=== PATIENT | male | born 1950 | race Caucasian/White ===

== ENCOUNTER 2021-11-26 11:33 | Observation (INO) ==
[2021-11-26] MEDS ORDERED: 0.9 % Sodium Chloride 1,000 ML IVC ONE (12:55)
[2021-11-26] MEDS ORDERED: Ondansetron 4 MG/2 ML VIAL IVP ONE (12:55)
[2021-11-26] MEDS ORDERED: *HR* FentaNYL (PF) 100 MCG/2 ML VIAL IVP STA ×2 (12:55→14:59)
[2021-11-26 13:34] LABS: Basophils % 0.2 %; Hematocrit 45.4 % (37.5-50.1); Hemoglobin 14.6 g/dL (12.9-16.9); Immature Granulocytes % 0.5 % (0-4); Lymphocytes # 1.8 K/mcL (0.6-4.6); Mean Corpuscular HGB Conc 32.2 g/dL (31.6-35.5); Mean Corpuscular Hemoglobin 27.1 pg (28.0-33.3); Mean Corpuscular Volume 84.2 fL (83.0-100.0); Mean Platelet Volume 10.4 fL (9.4-12.4); Monocytes # 1.2 K/mcL (0.0-1.3); Monocytes % 6.5 %; Neutrophils # 14.7 K/mcL (1.6-8.9); Platelet Count 293 K/mcL (140-400); Red Blood Count 5.39 M/mcL (4.19-5.50); Red Cell Distribution Width 15.5 % (11.5-14.5); Segmented Neutrophils % 82.8 %; White Blood Count 17.8 K/mcL (4.3-11.1)
[2021-11-26] MEDS ORDERED: Cefepime HCl 1,000 MG in D5% in Water (Mini-Bag+) 100 ML IVPB STA (13:58)
[2021-11-26 14:10] LABS: Alanine Aminotransferase 20 Units/L (7-52); Albumin 4.1 g/dL (3.5-5.7); Albumin/Globulin Ratio 1.5 (1.1-2.2); Alkaline Phosphatase 80 Units/L (34-104); Aspartate Amino Transferase 14 Units/L (13-39); BUN/Creatinine Ratio 17 (6-26); Bilirubin,Direct 0.2 mg/dL (0.0-0.2); Bilirubin,Indirect 0.8 mg/dL (0.0-1.0); Blood Urea Nitrogen 16 mg/dL (8-23); Calcium 9.4 mg/dL (8.6-10.3); Carbon Dioxide 25 mEq/L (23-29); Chloride 102 mEq/L (98-107); Globulin 2.8 g/dL (2.4-3.5); Glucose 136 mg/dL (70-105); Lipase 12 Units/L (11-82); Osmolality,Calculated 285 (280-300); Potassium 3.8 mEq/L (3.5-5.1); Sodium 136 mEq/L (136-145); Total Protein 6.9 g/dL (6.4-8.9); eGFR For African Americans > 60 (> 60); eGFR For Non-African Americans > 60 (> 60)
[2021-11-26 14:12] LABS: Bilirubin,Urine Negative (Negative); Blood,Urine Negative (Negative); Clarity,Urine Clear (Clear); Color,Urine Yellow (Yellow); Glucose,Urine (UA) Normal (Normal); Hyaline Casts,Urine Few per lpf (None Seen); Ketones,Urine Negative (Negative); Leukocyte Esterase,Urine Negative (Negative); Mucus,Urine Few per lpf (None-Few); Nitrite,Urine Negative (Negative); Protein,Urine 50 mg/dL (Neg-Trace); RBC,Urine 0-3 per hpf (0-3); Specific Gravity,Urine 1.029 (1.010-1.025); Urobilinogen,Urine Normal (Normal)
[2021-11-26] MEDS ORDERED: Cefepime HCl 1,000 MG in 0.9 % Sodium Chloride Mini Bag 100 ML IVP ONE (15:10)
[2021-11-26] MEDS ORDERED: *HR* HYDROmorphone 2 MG/ML SYRINGE IVP ONE (16:53)
[2021-11-26] MEDS ORDERED: *HR* HYDROmorphone 2 MG/ML SYRINGE IVP PRN (17:25)
[2021-11-26] MEDS ORDERED: Ondansetron 4 MG/2 ML VIAL IVP PRN ×3 (17:26→22:50)
[2021-11-26] MEDS ORDERED: 0.9 % Sodium Chloride 1,000 ML IVC SCH (17:30)
[2021-11-26] MEDS ORDERED: Lidocaine HCL 4 ML Topical Solution (Laryng-O-Jet Kit Sterile Pak) TP ONE (17:53)
[2021-11-26] MEDS ORDERED: *HR* Succinylcholine 200 MG/10 ML VIAL IVP ONE (17:53)
[2021-11-26] MEDS ORDERED: Lidocaine -MPF 2% 2 ML VIAL ONE (17:53)
[2021-11-26] MEDS ORDERED: *HR* Propofol 200 MG/20 ML VIAL IVP ONE (17:53)
[2021-11-26] MEDS ORDERED: *HR* Rocuronium Bromide 50 MG/5 ML VIAL ONE ×2 (17:53→19:14)
[2021-11-26] MEDS ORDERED: MetroNIDAZOLE 500 MG/100 ML 500 MG/100 ML BAG IVPB SCH (18:00)
[2021-11-26] MEDS ORDERED: Acetaminophen IV 1,000 MG/100 ML BAG IVPB ONE (18:12)
[2021-11-26] MEDS ORDERED: Famotidine 20 MG/2 ML VIAL ONE (18:12)
[2021-11-26] MEDS ORDERED: CefOXitin 1,000 MG VIAL ONE (18:13)
[2021-11-26] MEDS ORDERED: MetroNIDAZOLE 500 MG/100 ML 500 MG/100 ML BAG IVPB ONE (18:13)
[2021-11-26] MEDS ORDERED: *HR* FentaNYL (PF) 100 MCG/2 ML VIAL ONE ×2 (18:15→18:34)
[2021-11-26] MEDS ORDERED: *HR* Midazolam HCl 2 MG/2 ML VIAL ONE (18:22)
[2021-11-26] MEDS ORDERED: Acetaminophen IV 1,000 MG/100 ML BAG IVPB SCH (19:00)
[2021-11-26] MEDS ORDERED: EPHEDrine 50 MG/ML VIAL ONE (19:05)
[2021-11-26] MEDS ORDERED: *HR* HYDROMORPHONE 2 MG/ML VIAL ONE ×2 (19:32→20:57)
[2021-11-27] MEDS ORDERED: ceFAZolin 1,000 MG in 0.9 % Sodium Chloride 10 ML IVP SCH
[2021-11-27] MEDS: Acetaminophen IV 1,000 MG/100 ML BAG IVPB SCH ×5 (02:12→23:18)
[2021-11-27] MEDS: ceFAZolin 1,000 MG in 0.9 % Sodium Chloride 10 ML IVP SCH ×4 (02:19→23:19)
[2021-11-27] MEDS: MetroNIDAZOLE 500 MG/100 ML 500 MG/100 ML BAG IVPB SCH ×5 (02:19→23:19)
[2021-11-27 03:29] LABS: Basophils % 0.1 %; Hematocrit 40.9 % (37.5-50.1); Immature Granulocytes % 0.4 % (0-4); Lymphocytes % 5.8 %; Mean Corpuscular HGB Conc 31.8 g/dL (31.6-35.5); Mean Corpuscular Hemoglobin 27.3 pg (28.0-33.3); Mean Corpuscular Volume 85.7 fL (83.0-100.0); Mean Platelet Volume 10.5 fL (9.4-12.4); Monocytes # 0.9 K/mcL (0.0-1.3); Monocytes % 4.9 %; Neutrophils # 15.8 K/mcL (1.6-8.9); Platelet Count 258 K/mcL (140-400); Red Blood Count 4.77 M/mcL (4.19-5.50); Red Cell Distribution Width 15.5 % (11.5-14.5); Segmented Neutrophils % 88.8 %; White Blood Count 17.8 K/mcL (4.3-11.1)
[2021-11-27] MEDS: *HR* OxyCODONE Immed Rel 5 MG TABLET PO PRN ×3 (06:44→20:03)
[2021-11-27] MEDS: NIFEdipine XL (24 HR) 30 MG TAB.ER.24 PO SCH (07:58)
[2021-11-27] MEDS ORDERED: NIFEdipine XL (24 HR) 30 MG TAB.ER.24 PO SCH (09:00)
[2021-11-28] MEDS: *HR* OxyCODONE Immed Rel 5 MG TABLET PO PRN ×5 (00:56→22:56)
[2021-11-28] MEDS: MetroNIDAZOLE 500 MG/100 ML 500 MG/100 ML BAG IVPB SCH ×4 (04:59→23:58)
[2021-11-28] MEDS: Acetaminophen IV 1,000 MG/100 ML BAG IVPB SCH ×4 (05:00→23:58)
[2021-11-28 06:23] LABS: Basophils # 0.1 K/mcL (0.0-0.2); Basophils % 0.5 %; Eosinophils # 0.4 K/mcL (0.0-0.6); Eosinophils % 3.2 %; Hematocrit 37.5 % (37.5-50.1); Hemoglobin 11.9 g/dL (12.9-16.9); Immature Granulocytes % 0.2 % (0-4); Lymphocytes # 2.2 K/mcL (0.6-4.6); Lymphocytes % 17.7 %; Mean Corpuscular HGB Conc 31.7 g/dL (31.6-35.5); Mean Corpuscular Hemoglobin 27.4 pg (28.0-33.3); Mean Corpuscular Volume 86.4 fL (83.0-100.0); Mean Platelet Volume 10.3 fL (9.4-12.4); Monocytes # 1.1 K/mcL (0.0-1.3); Neutrophils # 8.8 K/mcL (1.6-8.9); Platelet Count 252 K/mcL (140-400); Red Blood Count 4.34 M/mcL (4.19-5.50); Red Cell Distribution Width 15.6 % (11.5-14.5); Segmented Neutrophils % 69.4 %; White Blood Count 12.6 K/mcL (4.3-11.1)
[2021-11-28] MEDS: NIFEdipine XL (24 HR) 30 MG TAB.ER.24 PO SCH (08:42)
[2021-11-28] MEDS: ceFAZolin 1,000 MG in 0.9 % Sodium Chloride 10 ML IVP SCH ×2 (08:42→18:18)
[2021-11-29] MEDS: ceFAZolin 1,000 MG in 0.9 % Sodium Chloride 10 ML IVP SCH ×2 (00:25→09:18)
[2021-11-29] MEDS: *HR* OxyCODONE Immed Rel 5 MG TABLET PO PRN (03:52)
[2021-11-29] MEDS: Acetaminophen IV 1,000 MG/100 ML BAG IVPB SCH ×2 (05:23→12:06)
[2021-11-29] MEDS: MetroNIDAZOLE 500 MG/100 ML 500 MG/100 ML BAG IVPB SCH ×2 (05:25→12:05)
[2021-11-29 07:32] VITALS: O2SAT 93
[2021-11-29] MEDS: NIFEdipine XL (24 HR) 30 MG TAB.ER.24 PO SCH (09:18)
[2021-11-29 11:20] VITALS: BP 169/90; PULSE 58; TEMP 98.1
== END 2021-11-29 11:57 | disposition home or self-care (01) ==
LOC: 3ANU 11:33 → EMEROOARM 11:33 → 3ANU 16:02
PROVIDERS: ADMIT Surgery; ATTEND Surgery